=== PATIENT | female | born 1980 | race African-American/Black ===

== ENCOUNTER 2019-07-24 20:36 | Emergency (ER) | payer SELFPAY ==
[~2019-07-24] VITALS: Ht 182.9 cm; Wt 137.9 kg
[2019-07-24 22:46] LABS: Basophils # (auto) 0.1 uL; Basophils % (auto) 0.9 % (0.0-2.0); Eosinophils # (auto) 0.1 uL; Eosinophils % (auto) 1.9 % (0.0-7.0); Hematocrit 38.7 % (36.0-46.0); Hemoglobin 13.3 g/dL (12.2-16.2); Lymphocytes # (auto) 2.5 uL; Lymphocytes % (auto) 38.1 % (10.0-50.0); Mean Corpuscular Hgb Conc. 34.2 g/dL (32.0-36.0); Mean Corpuscular Volume 84.8 fL (80.0-100.0); Monocytes # (auto) 0.5 uL; Monocytes % (auto) 7.5 % (0.0-12.0); Neutrophils # (auto) 3.4 uL; Neutrophils % (auto) 51.6 % (37.0-80.0); Platelet Count (auto) 287 10^3/uL (140-450); Red Blood Cells 4.57 10^6/uL (4.0-5.20); Red Cell Distribution Width 14.1 % (11.8-14.3); White Blood Cell 6.6 10^3/uL (4.4-10.8)
[2019-07-24 23:01] LABS: INR 1.01 (0.9-1.15); Partial Thromboplastin Time 27.8 sec (23.64-32.05)
[2019-07-24 23:17] LABS: Albumin 3.7 g/dL (3.4-5.0); Calcium 8.7 mg/dL (8.5-10.1)
[2019-07-24 23:20] LABS: Bilirubin, Total 0.2 mg/dL (0.2-1.0); Total Protein 8.6 g/dL (6.4-8.2)
[2019-07-25] MEDS ORDERED: IOHEXOL 350 MG/ML 100ML IJ ONE (10:38)
[2019-07-25 12:31] VITALS: BP 101/56
== END 2019-07-25 13:00 | disposition home or self-care (01) ==
LOC: ER 20:39
DX: S86.912A Strain of unspecified muscle(s) and tendon(s) at lower leg level, left leg, initial encounter (principal); X58.XXXA Exposure to other specified factors, initial encounter; Y93.89 Activity, other specified; Y92.89 Other specified places as the place of occurrence of the external cause; Y99.8 Other external cause status
CPT/HCPCS: 36415; 71275; 80053; 81025; 85025; 85379; 85610; 85730; 93971; 99284; J7030; Q9967